=== PATIENT | male | born 1975 | race African-American/Black ===

== ENCOUNTER 2016-06-11 02:24 | Observation (INO) | payer OTHER ==
[2016-06-11] VITALS (7 sets, daily range): BP systolic 125–204; BP diastolic 82–122
[~2016-06-11] VITALS: Ht 165.1 cm; Wt 73.7 kg
--- NOTE | ~2016-06-11 | EKG ---
[address] [address] ELECTROCARDIOGRAM REPORT Name: ELLISDENA Poole Room #: 205-[facility].#: [id number] Admission: 06/11/16 Attend Phys: Campbell Andrade MD Discharge: Date of : 73 Report #: [id number] THIS REPORT FOR: //name// [facility] ED Test Date: 2016-06-11 Test Time: 02:29:47 Pat Name: DENA CORRAL Department: Room: [facility] Gender: M Svp Of Digital: HUONG : 1975 Requested By: Jahaira Stiles Order Number: [id number] MD: Severiano Hanks Measurements Intervals [place] Rate: 128 P: 74 FL: 144 QRS: 33 QRSD: 65 T: 45 QT: 301 QTc: 440 Interpretive Statements Sinus tachycardia Otherwise normal tracing Compared to ECG 03/09/2016 01:09:52 no significant change was found Electronically Signed On 06-11-2016 7:59:11 [employer] by Severiano Hanks [email or web address] <ELECTRONICALLY SIGNED> By: Severiano Hanks MD, [facility] 06/11/16 0759 [id number] 8 Severiano Hanks MD, FACC /EPI
--- NOTE | ~2016-06-11 | D ---
[facility] [place] [address] DISCHARGE SUMMARY Name: DENA CORRAL Room #: 205-P [facility] Tonia Amin#: [id number] Admission: 06/11/16 Attend Phys: Fartun Schulte MD Discharge: 06/11/16 Date of : 73 Report #: [id number] THIS REPORT FOR: //name// CC: GERA ALIDA Schulte DATE OF SERVICE: 06/11/2016 DISCHARGE DIAGNOSES: 1. Acute hypoxic respiratory failure, now resolved. 2. Asthma exacerbation. 3. Tobacco abuse. 4. History of hypertension. CONSULTS: None. PROCEDURES: None. HOSPITAL COURSE: The patient is a 41-year-old male admission with a history of tobacco abuse, hypertension, presented to the ER secondary to shortness of breath. Please see details of admission dictated by on June 11. The patient was admitted and was initially placed on BiPAP, aggressive pulmonary toiletry and Solu-Medrol. Few hours after admission, the patient was markedly improved. He is ambulating without oxygen and was satting well. At that time, he was very anxious to leave. His clinical exam was also improved and nurses report no other problems. Chest x-ray showed air trapping and chronic granulomatous disease, but no other issues. DISCHARGE DISPOSITION: To home. DISCHARGE PHYSICAL EXAMINATION: VITAL SIGNS: Temp of 36, pulse of 116, blood pressure 131/82 and O2 sat 97% on room air. GENERAL: He is awake, alert, answering question appropriately, no acute respiratory distress. CARDIOVASCULAR: Regular rate and rhythm. No murmurs. LUNGS: Clear to auscultation bilaterally. No crackles. Occasional wheeze. Decreased at bases, markedly improved. ABDOMEN: Soft, no distention or tenderness. EXTREMITIES: No edema. NEUROLOGIC: Nonfocal. DISCHARGE MEDICATIONS: Medrol Dosepak, Claritin 10 mg daily, Singulair 10 daily, albuterol p.r.n., gabapentin 300 t.i.d., Advil 1 puff b.i.d., DuoNebs q.i.d., doxycycline 100 b.i.d. [facility] [address] [place] [address] DISCHARGE SUMMARY Name: DENA CORRAL Zulema Room #: 205-P [facility] Eloisa#: [id number] Admission: 06/11/16 Attend Phys: Fartun Schulte MD Discharge: 06/11/16 Date of : 73 Report #: [id number] DIET: Regular diet. ACTIVITY: As tolerated. FOLLOWUP: With primary care in 1 week with repeat chest x-ray and to seek immediate medical attention if symptoms worsen or recur or if he has any significant medical concerns. <ELECTRONICALLY SIGNED> By: Fartun Schulte MD 07/21/16 1053 [id number] [id number] My Mita Schulte MD /nt
[~2016-06-11 02:24] MED LIST: ACCUNEB SO1.25 MG/1 INH; ADVAIR 500-501 EACH INH; ADVAIR HFA 230M12 GM INH; CLARITIN10 MG PO; DOXYCYCLINE 10100 M1 PO; DUONEB 2.5-0.5 M3 ML INH; MEDLISTUNAVAIL; NEURONTIN 300300 M1 PO; NEURONTIN 300M300 M2; PREDNISONE 10 M10 MG PO; PREDNISONE 20 M20 MG PO; PROAIR HFA8.5 GM INH; SINGULAIR 10 MG10 M1 PO; VENTOLIN HFA 1818 GM
[2016-06-11 02:41] LABS: ABSOLUTE NEUTROPHILS 3.6 thou/uL (1.4-8.2); BASOPHILS 0.5 % (0.0-2.0); EOSINOPHILS 8.4 % (0.0-3.0); HEMATOCRIT 42.9 % (42.0-52.0); HEMOGLOBIN 14.4 gm/dL (14.0-18.0); LYMPHOCYTES 37.5 % (24.0-44.0); MCH 30.1 pg (26.0-34.0); MCHC 33.6 % (28.0-37.0); MCV 89.7 fL (80.0-100.0); MONOCYTES 6.8 % (1.0-8.0); PLATELET COUNT 229 thou/uL (150-400); POLYS 46.8 % (36.0-66.0); RBC 4.79 mil/uL (4.50-6.00); RDW 13.4 % (10.5-14.5); WBC 7.8 thou/uL (4.0-11.0)
[2016-06-11 02:43] LABS: MANUAL DIFF NO
[2016-06-11 02:49] LABS: ANION GAP 11 mmol/L (7-16); BUN 16 mg/dL (7-18); CALCIUM 8.2 mg/dL (8.5-10.1); CHLORIDE 107 mmol/L (98-107); CO2 26 mmol/L (21-32); CREATININE 1.2 mg/dL (0.6-1.3); GLUCOSE 116 mg/dL (70-99); POTASSIUM 3.5 mmol/L (3.5-5.1); SODIUM 144 mmol/L (136-145)
[2016-06-11 02:54] LABS: ABG SAMPLE TYPE ARTERIAL; BE(vivo) -1.5 mmol/L (-2 to +3); HCO3 24.4 mmol/L (22.0-26.0); LACTATE 0.95 mmol/L (0.5-2.0); O2(CT) 20.9 mL/dL (15.0-23.0); O2Hb 97.4 % (92.0-98.0); PCO2 45.2 mmHg (35.0-45.0); PO2 265.4 mmHg (80.0-100.0); STICK SITE R.RADIAL; sO2 99.6 % (92.0-98.0); tCO2 25.8 mmol/L (24.0-30.0)
[2016-06-11 02:55] LABS: ABG COMMENT BIPAP 18/6 X 20MIN.; Pressure Support 12 cm H20
[2016-06-11 03:02] LABS: ALBUMIN 3.9 g/dL (3.4-5.0); ALKALINE PHOSPHATASE 98 U/L (46-116); NT-PRO BRAIN NAT PEPTIDE 14 pg/mL (<300); SGOT 22 U/L (15-37); SGPT 36 U/L (30-65); TOTAL BILIRUBIN 0.4 mg/dL (<0.1-1.0); TOTAL PROTEIN 6.9 g/dL (6.4-8.2); TROPONIN-I < 0.04 ng/mL (<0.04-0.07)
[2016-06-11] MEDS ORDERED: MEDROL DOSPAK21 TA1 PO (14:11)
[2016-07-22] MEDS ORDERED: PROAIR HFA8.5 GM SPRAY (09:58)
[2016-07-22] MEDS ORDERED: MEDROLDOSEPACK PO (09:58)
== END 2016-06-11 15:16 | disposition home or self-care (01) ==
LOC: ER 02:24 → EROBS 03:23 → 2N 03:23
PROVIDERS: Emergency Medicine
DX: J96.00 Acute respiratory failure, unspecified whether with hypoxia or hypercapnia (principal); J45.902 Unspecified asthma with status asthmaticus; I12.9 Hypertensive chronic kidney disease with stage 1 through stage 4 chronic kidney disease, or unspecified chronic kidney disease; N18.3 Chronic kidney disease, stage 3 (moderate); Z79.2 Long term (current) use of antibiotics